=== PATIENT | female | born 1995 | race Caucasian/White ===

== ENCOUNTER 2019-01-17 07:19 | Emergency (ER) | payer BC, MEDICAID ==
[~2019-01-17] VITALS: Ht 167.6 cm; Wt 117.5 kg
[~2019-01-17 07:19] MED LIST: CEPH500T PO; HYDR-4383 PO; HYDR28CR14 TP; ONDA4TAB6 PO; PRED20TA PO
[2019-01-17 07:22] VITALS: BP 148/83
[2019-01-17] MEDS ORDERED: ALBU18HF2 INH (07:45)
[2019-01-17] MEDS ORDERED: DOXY100C43 PO (07:45)
[2019-01-17] MEDS ORDERED: PRED20TA PO (07:45)
[2019-01-17] MEDS ORDERED: ONDA4TAB6 PO (08:01)
== END 2019-01-17 08:27 | disposition home or self-care (01) ==
LOC: ER 07:20
DX: J20.9 Acute bronchitis, unspecified (principal); R11.2 Nausea with vomiting, unspecified; F17.210 Nicotine dependence, cigarettes, uncomplicated; Z71.6 Tobacco abuse counseling; Z79.899 Other long term (current) drug therapy
CPT/HCPCS: 99283; 99406

== ENCOUNTER 2019-03-25 03:23 | Emergency (ER) | payer MEDICAID ==
[~2019-03-25] VITALS: Ht 167.6 cm; Wt 112.7 kg
[~2019-03-25 03:23] MED LIST changes: +ALBU18HF2 INH
[2019-03-25 03:36] VITALS: BP 126/68
[2019-03-25] MEDS ORDERED: CLIN-90 PO (03:52)
== END 2019-03-25 04:09 | disposition home or self-care (01) ==
LOC: ER 03:24
DX: L03.116 Cellulitis of left lower limb (principal); L03.115 Cellulitis of right lower limb; F41.9 Anxiety disorder, unspecified; F17.200 Nicotine dependence, unspecified, uncomplicated; Z79.899 Other long term (current) drug therapy
CPT/HCPCS: 99283

== ENCOUNTER 2024-08-12 02:25 | Emergency (ER) | payer MEDICAID ==
[~2024-08-12] VITALS: Ht 165.1 cm; Wt 105.3 kg
[~2024-08-12 02:25] MED LIST changes: +CLIN-97 PO
[2024-08-12 02:27] VITALS: BP 139/76; PULSE 99; RESP 15; TEMP 96.8; O2SAT 98
[2024-08-12] MEDS: acetaminophen 325mg tablet PO ONE (04:08)
--- NOTE | 2024-08-12 04:31 | Physician Documentation ---
History of Present Illness ~ Chief Complaint: Cold, cough & congestion Stated Complaint: SORE THROAT/CONGESTION Time Seen by MD: 04:24 OK to notify your PCP?: Yes Primary Medical Doctor: [facility] DR JOVANI HASSAN Source: patient, RN/, RN notes reviewed, old records Mode of Arrival: POV Exam Limitations: no limitations HPI 28 year old female complains of a sore throat, nasal and chest congestion, and intermittent headaches with photophobia for the last 36-46 hours. She has been taking Tylenol when she has a headache with improvement. Finally she notes she has had some recent voice changes. She denies any fever. Her child had similar symptoms, however his middle school coach believed they were related to seasonal allergies. Medication Reconciliation Allergies: Coded Allergies: No Known Allergies (Unverified , 08/12/24) Scheduled Albuterol Sulfate (Ventolin Hfa), 2 PUFFS INH Q4HPRN Cephalexin (Cephalexin), 1 TABLET PO QID Clindamycin HCL* (Clindamycin HCL*), 1 CAP PO Q6H Prednisone* (Prednisone*), 2 TAB PO DAILY Scheduled PRN Hydrocodone/Acetaminophen ([place] 5-325 Tablet), 1 TABLET PO Q6H PRN for pain Hydrocortisone (hydrocortisone 1% cream), 1 APPLIC TP QID PRN PRN for RASH Ondansetron Hcl (Zofran), 1 TABLET PO Q6H PRN for nausea/vomiting Ondansetron Hcl (Zofran), 1 TAB PO Q6H PRN for nausea/vomiting Past Medical History Past Medical History: Bronchitis, [place], Anxiety Past Surgical History: no surgical history Alcohol Use: None Drug Use: none Lives with: Family Lives In: Home Occupation: employed, student Review of Systems All Other Systems at this time: Reviewed and Negative ROS As stated above in the HPI, otherwise all systems are reviewed and negative. Physical Exam Vital Signs: RN Vital Signs have been reviewed: Yes, Temperature: 96.8, Source: Temporal, Heart Rate: 99, Respiratory Rate: 15, BP: 139/76, Pulse Oximetry: 98, Weight: 105.350 Pulse Oximetry Reflects: adequate oxygenation Physical Exam General: The patient is well developed, well nourished, nontoxic appearing and is in no acute distress. Skin: [place], warm and dry with no rashes. HEENT: Mild posterior oropharyngeal erythema. Tonsils enlarged. Uvula mi dline. Head was normocephalic and atraumatic. Chest: Clear to auscultation bilaterally without wheezes, rales or rhonchi. No accessory muscle use. No dullness to percussion. Heart: Rate regular and rhythmic. S1, S2. No murmurs. Palpation of the chest wall was normal. No rubs or thrills. Extremities: No cyanosis, clubbing or edema. The patient moves all extremities. Pulses were equal and symmetric. Neurologic: Motor and sensation grossly intact. Cranial nerves II-XII grossly intact. A & O x4. Psychologic: Normal mood and affect. No agitation. Progress Results/Orders Reviewed/noted all lab results: Yes Results/Orders Orders - PHILIP SANDOVAL MD Covid19 Binax Poc Result Entry (08/12/24 04:04) Completed Orders - PHILIP SANDOVAL MD Acetaminophen 325mg Tablet (Tylenol Tabl (08/12/24 04:05) Dexamethasone Inj (Decadron 10mg/Ml Inj) (08/12/24 04:53) Diphenhydramine Oral Solution (Hydramine (08/12/24 04:55) Medications Received in ER Medications (Trade) Dose Ordered Sig/Arin Route PRN Reason Start Time Stop Time Status Last Admin Dose Admin (Tylenol tablet) 650 mg ONCE ONCE PO 08/12/24 04:05 08/12/24 04:06 DC 08/12/24 04:08 650 MG (Decadron 10mg/ ml inj) 10 mg ONCE STAT PO 08/12/24 04:53 08/12/24 04:54 DC 08/12/24 05:07 10 MG (Hydramine oral solution) 6.25 mg Q6H PRN PO itching 08/12/24 04:55 08/12/24 05:13 DC 08/12/24 05:07 6.25 MG Vital Signs 08/12/24 02:27 Temp 96.8 Pulse 99 Resp 15 B/P (MAP) 139/76 Pulse Ox 98 Laboratory Tests Test 08/12/24 04:09 SARS-CoV-2 Antigen (Rapid) Negative Re-Evaluation Re-Evaluation : Re-Evaluation: Improved Progress Patient was seen and examined. Patient was given reassurance. The patient was negative for COVID received Tylenol for her headache migraine but as far as her viral pharyngitis received Decadron and Benadryl. Patient was given reassurance. Vitamin-C zinc was discussed. Patient was then discharged home to follow up with their primary care physician or Occupational Health. Medical Decision Making Additional info obtained from: old records Differential Dx:Considerations: Include: Allergic rhinitis, Influenza, Otitis media, Peritonsillar abscess, Pharyngitis-Streptoccal, Pharyngitis-Viral, Pneumonia, Pnuemonitis, Sinusitis, URI, Other Departure Time of Disposition: 04:54 Disposition: 01 HOME / SELF CARE / HOMELESS Impression: Primary Impression: Pharyngitis Qualified Codes: J02.9 - Acute pharyngitis, unspecified Additional Impression: Viral illness Condition: Stable Discharge Instructions: Pharyngitis, [id number] Additional Instructions: Continue [id number] Tylenol for headache and sore throat. May also take ibuprofen. Follow up with your regular doctor. Return to the ER for difficulty breathing, difficulty swallowing, or any other concerns. Education Educated: Patient Educated regarding: diagnosis, treatment, need for follow up Signature Scribe Signature: Scribed for Philip Sandoval MD by Brittanie Hobbs . 08/12/24 04:53 Attestation: The note accurately reflects work and decisions made by me.Philip Sandoval MD 08/12/24 04:31 PHILIP SANDOVAL MD August 12, 2024 04:31 BRITTANIE ROSALES August 12, 2024 04:58
[2024-08-12] MEDS: dexamethasone sod phosphate 10mg/ml inj PO STA (05:07)
[2024-08-12] MEDS: diphenhydrAMINE 25 MG/10 ML UD oral solution PO PRN (05:07)
== END 2024-08-12 05:13 | disposition home or self-care (01) ==
LOC: ER 02:26
DX: B34.9 Viral infection, unspecified (principal); J02.9 Acute pharyngitis, unspecified; F41.9 Anxiety disorder, unspecified; Z79.899 Other long term (current) drug therapy; Z79.52 Long term (current) use of systemic steroids; Z20.822 Contact with and (suspected) exposure to COVID-19
CPT/HCPCS: 36415; 87811; 99284; J1100; Q0163

== ENCOUNTER 2024-11-18 10:25 | Outpatient (CLI) | payer BC ==
[~2024-11-18 10:25] MED LIST changes: +CLIN-224 PO; -CLIN-97 PO
--- NOTE | 2024-11-18 13:52 | RADIOLOGY REPORT ---
X-ray lumbar spine Technique: AP lateral and coned-down lateral views INDICATION: Unspecified renal colic FINDINGS: Lumbar vertebrae are normal in height. There is disc space narrowing at L5-S1 with a 9 mm anterolisthesis due to spondylolysis IMPRESSION: 1. At L5-S1 anterolisthesis due to spondylolysis.
--- NOTE | 2024-11-18 13:54 | RADIOLOGY REPORT ---
X-ray cervical spine Technique: AP lateral and open-mouth views INDICATION: PAIN FINDINGS: Vertebral body height normal. Disc space height maintained. Slight straightening of the no rmal cervical lordotic curvature. No spondylolisthesis IMPRESSION: 1. No acute bony trauma.
--- NOTE | 2024-11-18 14:04 | RADIOLOGY REPORT ---
EXAM: DI SACRUM COCCYX CLINICAL INDICATION: Unspecified renal colic TECHNIQUE: DI SACRUM COCCYX Comparison: None FINDINGS/IMPRESSION: There is no evidence of acute fracture or dislocation. The visualized joint space is well maintained. The alignment is anatomical. There is no radiopaque foreign body.
== END 2024-11-18 23:59 | disposition home or self-care (01) ==
LOC: RAD 10:25
PROVIDERS: ATTEND Physician Assistant Medical
DX: M47.817 Spondylosis without myelopathy or radiculopathy, lumbosacral region (principal); M43.17 Spondylolisthesis, lumbosacral region; M48.07 Spinal stenosis, lumbosacral region; M54.50 Low back pain, unspecified; N23 Unspecified renal colic
CPT/HCPCS: 72040; 72050; 72100; 72220

== ENCOUNTER 2025-03-14 18:34 | Emergency (ER) | payer BC ==
[~2025-03-14] VITALS: Ht 165.1 cm; Wt 116.6 kg
--- NOTE | 2025-03-14 21:40 | Physician Documentation ---
HPI ~ General Chief Complaint: Tooth Problem Stated Complaint: TOOTH PAIN Time Seen by MD: 20:33 Primary Medical Doctor: [facility] DR JOVANI HASSAN History of Present Illness HPI Comment This is a 29 old female who presents with left lower rear molar pain, patient reports the tooth is chipped and she is scheduled to have the tooth out in nine days with an oral surgeon, patient reports the pain has been off and on for several months though was much worse today and radiates into her jaw and is causing her to have a headache. Patient reports no fevers, difficulty breathing, or difficulty swallowing. Patient reports no other acute symptoms or concerns. Medication Reconciliation Allergies: Coded Allergies: No Known Allergies (Unverified , 08/12/24) Scheduled Albuterol Sulfate (Ventolin Hfa), 2 PUFFS INH Q4HPRN Amoxicillin Trihydrate* (Amoxicillin*), 1 CAP PO Q8H Cephalexin (Cephalexin), 1 TABLET PO QID Clindamycin HCL* (Clindamycin HCL*), 1 CAP PO Q6H Ibuprofen (Ibuprofen), 1 TAB PO Q8H Prednisone* (Prednisone*), 2 TAB PO DAILY Scheduled PRN Hydrocodone/Acetaminophen ([place] 5-325 Tablet), 1 TABLET PO Q6H PRN for pain Hydrocortisone (hydrocortisone 1% cream), 1 APPLIC TP QID PRN PRN for RASH Ondansetron Hcl (Zofran), 1 TABLET PO Q6H PRN for nausea/vomiting Ondansetron Hcl (Zofran), 1 TAB PO Q6H PRN for nausea/vomiting Past Medical History Past Medical History: Bronchitis, Chladmydia, Anxiety Past Surgical History: no surgical history Alcohol Use: None Drug Use: none Lives with: Family Lives In: Home Occupation: employed, student Review of Systems ROS As stated above in the HPI, otherwise all systems are reviewed and negative. Physical Exam Vital Signs: Temperature: 98.2, Source: Oral, Heart Rate: 67, Respiratory Rate: 16, BP: 156/100, Pulse Oximetry: 99, Weight: 116.600 Oxygen Flow Rate: 0 Physical Exam VITALS: Reviewed and as above. GENERAL: Alert, nontoxic appearing, no apparent distress. HEENT: Left lower rear molar large chip, no erythema, swelling, or fluctuance to gums at the base. Submandibular swelling, no tongue elevation, no facial swelling, no drooling. Bilateral TMs clear normal exam RESPIRATORY: No increased work of breathing, no respiratory distress, speaking in full clear sentences Progress Results/Orders Results/Orders Completed Orders - YANCI DIAZ [employer] Ketorolac Trometh 15mg/Ml Vial (Toradol (03/14/25 21:50) Amoxicillin Capsule (Trimox Capsule) (03/14/25 21:50) Vital Signs 03/14/25 03/14/25 18:48 22:01 Temp 98.2 98.6 Pulse 67 65 Resp 16 18 B/P (MAP) 156/100 155/99 Pulse Ox 99 99 O2 Flow Rate 0 Medical Decision Making Additional information obtaine: N/A Findings This well appearing 29 old female presented with dental pain to the left rear lower molar. Based on history and physical exam I have low clinical suspicion for peritonsillar abscess, uvulitis, deep tissue space infection of the head/neck, or impending airway compromise. There was no submandibular swelling or elevation of the tongue, the uvula was midline, patient is able to swallow fluids and secretion without difficulty, there is no increased work of breathing or noisy breathing. It is reassuring patient has prompt follow up with an oral surgeon for removal. Patient is otherwise well-appearing and appropriate for outpatient follow up. Patient has follow up as soon as possible with a dentist/oral surgeon. Based on presentation I am concerned for possible odontogenic infection and antibiotic treatment with amoxicillin for dental injury prophylaxis is indicated Patient provided home care instructions return to care precautions, and follow up instructions which she verbalized understanding of. Differential Dx:Considerations: Include: Alveolar fracture, Alveolar osteitis, ANUG, Facial Cellulitis, Periapical abscess, Peridontal abscess, Pulpitis, Tooth avulsion, Tooth eruption, Tooth Fracture, Trigeminal neuralgia, Other (Ramesh's angina) Departure Time of Disposition: 21:39 Disposition: 01 HOME / SELF CARE / HOMELESS Impression: Primary Impression: Toothache Condition: Improved Discharge Instructions: Dental Pain Additional Instructions: Follow up promptly with your oral surgeon. Please take the antibiotics as prescribed. Please use the ibuprofen as prescribed. You may add Tylenol as needed for breakthrough pain with up to 1000 mg 4 times a day. Please follow up with your primary care provider in the next few days. Please return to the emergency department for any new or worsening concerning symptoms. Referrals: NO PRIMARY CARE PROVIDER (PCP) Prescriptions Amoxicillin Trihydrate* (Amoxicillin*) 500 Mg Capsule 1 CAP PO Q8H for 10 Days, #30 CAP Prov: YANCI DIAZ 03/14/25 Ibuprofen (Ibuprofen) 800 Mg Tablet 1 TAB PO Q8H for pain for 10 Days, #30 TAB 0 Refills Prov: YANCI DIAZ 03/14/25 Education Educated: Patient Educated regarding: diagnosis, treatment, prognosis, need for follow up Signature Scribe Signature: No scribe Attestation: The note accurately reflects work and decisions made by me.RUDOLPH Campos 03/15/25 12:42 YANCI DIAZ Mar 14, 2025 21:40
[2025-03-14] MEDS ORDERED: IBUP-1986 PO (21:41)
[2025-03-14] MEDS ORDERED: AMOX500C2 PO (21:41)
[2025-03-14] MEDS: ketorolac trometh 15mg/ml vial 15 MG/ML ML IM ONE (21:57)
[2025-03-14 22:01] VITALS: BP 155/99; PULSE 65; RESP 18; TEMP 98.6; O2SAT 99
== END 2025-03-14 22:02 | disposition home or self-care (01) ==
LOC: ER 18:34
DX: K08.89 Other specified disorders of teeth and supporting structures (principal); F41.9 Anxiety disorder, unspecified; Z79.899 Other long term (current) drug therapy
CPT/HCPCS: 96372; 99283; J1885